=== PATIENT | female | born 1970 | race Caucasian/White ===

== ENCOUNTER 2017-09-27 12:43 | Emergency (ER) | payer BC, OTHER ==
[2017-09-27 12:56] VITALS: O2SAT 98
--- NOTE | 2017-09-27 13:07 | ERPHSYRPT ---
- History of Present Illness Time Seen by Provider: 09/27/17 12:56 Source: patient Exam Limitations: no limitations Patient Subjective Stated Complaint: pt reports she was chopping veggies and accidently cut her left first finger-denies numbness or tinlging-denies other injury Triage Nursing Assessment: pt pink warm and [id number] noted-bleeding controlled with pressure-radial pulse regular and strong-resp easy and nonlabored Physician History: 46-year-old white female arrives with complaint of laceration to the tip of her left fourth finger since just prior to arrival. Patient states she was cutting tomatoes. Patient has no other complaints. Past medical history is negative. Occurred: just prior to arrival Method of Injury: other (cutting tomatoes at work) Extremities Pain Location: 4th finger: left Modifying Factors: Improves With: nothing Associated Symptoms: none Allergies/Adverse Reactions: adhesive tape Allergy (Verified 09/27/17 13:01) penicillin G Allergy (Verified 09/27/17 13:01) Proton Pump Inhibitors Allergy (Verified 09/27/17 13:01) topiramate [From Topamax] Allergy (Verified 09/27/17 13:01) Home Medications: Celecoxib [Celebrex] 100 mg PO DAILY 09/27/17 [History] Duloxetine HCl [Cymbalta] 60 mg PO DAILY 09/27/17 [History] Hx Tetanus, Diphtheria Vaccination/Date Given: Yes (2016) Hx Influenza Vaccination/Date Given: No Hx Pneumococcal Vaccination/Date Given: No Immunizations Up to Date: Yes - Review of Systems Constitutional: No Fever, No Chills Eyes: No Symptoms Ears, Nose, & Throat: No Symptoms Respiratory: No Cough, No Dyspnea Cardiac: No Chest Pain, No Edema, No Syncope Abdominal/Gastrointestinal: No Abdominal Pain, No Nausea, No Vomiting, No Diarrhea Genitourinary Symptoms: No Dysuria Musculoskeletal: No Back Pain, No Neck Pain Skin: Other (1.5 cm laceration (skin flap) left fourth finger pad) Neurological: No Dizziness, No Focal Weakness, No Sensory Changes Psychological: No Symptoms Endocrine: No Symptoms All Other Systems: Reviewed and Negative - Past Medical History Pertinent Past Medical History: No - Past Surgical History Past Surgical History: No - Social History Smoking Status: Current every day smoker How long have you smoked: yrs Exposure to second hand smoke: No Drug Use: none Patient Lives Alone: No - Female History Hx Last Menstrual Period: currently Hx Now: No - Nursing Vital Signs Nursing Vital Signs: Initial Vital Signs Temperature 98.1 F 09/27/17 12:54 Pulse Rate 78 09/27/17 12:54 Respiratory Rate 18 09/27/17 12:54 Blood Pressure 140/79 09/27/17 12:54 O2 Sat by Pulse Oximetry 98 09/27/17 12:54 Pain Scale Pain Intensity 2 - Physical Exam General Appearance: alert Eyes, Ears, Nose, Throat Exam: moist mucous membranes Neck Exam: non-tender, supple Cardiovascular/Respiratory Exam: chest non-tender, normal breath sounds, regular rate/rhythm, no respiratory distress Abdominal Exam: non-tender, No guarding Back Exam: normal inspection, No vertebral tenderness Shoulder Exam: normal inspection, non-tender, no evidence of injury, normal ROM Elbow/Forearm Exam: normal inspection, non-tender, no evidence of injury, normal ROM Wrist Exam: normal inspection, non-tender, no evidence of injury, normal ROM Hand Exam: No normal inspection (left fourth finger with 1.5 cm laceration over finger pad. Full range of motion all extremites) Neuro/Tendon Exam: normal sensation, normal motor functions Mental Status Exam: alert, oriented x 3, cooperative Skin Exam: normal color, warm, dry SpO2 Interpretation: normal (98%) SpO2: 98 Oxygen Delivery: Room Air - Course Nursing assessment & vital signs reviewed: Yes Ordered Tests: Active Orders 24 hr Category Date Time Status Wound Care STAT Care 09/27/17 12:59 Active - Progress Progress: improved Progress Note: 09/27/17 13:04 This is a 46-year-old white female arrives with complaint of a 1.5 cm skin flap laceration overlying her left fourth finger pad she states she lacerated this cutting tomatoes at work. Patient has full range of motion all extremities sensation intact to all extremities good capillary refill to all extremities. Patient is up-to-date on her tetanus with tetanus within a year. Will have nurse clean the area and apply Dermabond - Departure Time of Disposition: 13:06 Departure Disposition: Home Clinical Impression: 1.5 cm laceration left fourth finger Condition: Fair Critical Care Time: No Instructions: Laceration Repair With Glue (DC) Additional Instructions: Return home. Keep area clean and dry until completely healed. Do not apply traction to area. Do not apply ointments to area. Follow-up with your company or return if problems. Return for acute distress or for severe symptoms.
[2017-09-27 13:18] VITALS: BP 138/70; PULSE 75
== END 2017-09-27 13:18 | disposition home or self-care (01) ==
LOC: ED 12:43
PROC: 0HQGXZZ Repair Left Hand Skin, External Approach (ICD-10-PCS; principal; 2017-09-27)
DX: S61.215A Laceration without foreign body of left ring finger without damage to nail, initial encounter (principal); W26.0XXA Contact with knife, initial encounter; Y93.G3 Activity, cooking and baking; Y99.0 Civilian activity done for income or pay
CPT/HCPCS: 12001; 99283